=== PATIENT | female | born 1990 | race Caucasian/White ===

== ENCOUNTER 2023-02-20 19:16 | Emergency (ER) | payer BC, SELFPAY ==
--- NOTE | 2023-02-20 19:21 | ED.GENADULT ---
HPI - General Adult General Chief complaint: Unspecified Stated complaint: swollen lumph under left arm Time Seen by Provider: 02/20/23 19:38 Mode of arrival: ambulatory Limitations: no limitations History of Present Illness HPI narrative: 32-year-old female presents with concern for tender bumps in her left axilla. Reports she noticed them about 2 days ago. She denies any other areas of concern. She denies any redness, drainage. She denies fever, aches, chills, sweats. She denies general malaise, fever. Denies cold symptoms. complaint: Swollen lymph node Related Data Home Medications Medication Instructions Recorded Confirmed dextroamphetamine-amphetamine ER 20 mg PO DAILY 02/20/23 02/20/23 20 mg 24hr capsule,extend release Allergies Allergy/AdvReac Type Severity Reaction Status Date / Time No Known Allergies Allergy Verified 02/20/23 19:32 Review of Systems Review of Systems: CONSTITUTIONAL: Denies malaise, chills, sweats, or fever. ENT: Denies rhinorrhea, congestion, sinus pain, otalgia or sore throat. GASTROINTESTINAL: Denies nausea, vomiting, diarrhea, SKIN: Reports tender bumps in the left axilla MUSCULOSKELETAL: Denies myalgia. NEUROLOGIC: Denies numbness, weakness, or headache. All systems reviewed & are unremarkable except as noted in HPI and below PMFSH Comments At time of signature, agree with nursing past medical, surgical, social and family history. There is no relevant family history pertinent to the presenting complaint Exam Narrative: GENERAL: Well-appearing, well-nourished, and in no acute distress. HEAD: Normocephalic, atraumatic. EYES: PERRLA, sclera clear, and EOMI. No nystagmus. ENT: Nares clear, turbinates pink, no rhinorrhea or epistaxis. Mucous membranes moist. TM pearly gilmore with sharp light reflex bilaterally; no tragal tenderness. Oropharynx without erythema or lesions. Tonsils not enlarged and without exudate. NECK: Supple. No cervical lymphadenopathy. CHEST: No respiratory distress. Speaks in full sentences. HEART: Regular rate and rhythm. No murmur heard. EXTREMITIES: Normal range of motion. No edema. Normal strength and sensation. Left axillary lymphadenopathy, 3 palpable small lymph nodes, mobile and slightly tender SKIN: Warm, dry, no visible rash. NEURO: Alert and oriented x3. PSYCH: Normal mood and affect Course Course Emergency Course: Patient was advised to seek further evaluation with her primary care provider. Antibiotic prescribed because I cannot rule out folliculitis at this early stage, patient was advised that if her symptoms become worse with increased redness, tenderness, drainage she should start antibiotic. Patient is aware of, understands and agrees to treatment plan. Anticipatory guidance given. Patient agrees to follow-up as directed and is aware of reasons to seek care at the emergency department. Portions of this record may have been created with voice recognition software Level of Care: Express Care Visit Vital Signs Vital signs: Reviewed. Medical Decision Making MDM Narrative Medical decision making narrative: Exam findings show no acute concerns or changes; patient is non-toxic appearing and is in no distress. Patient is appropriate for outpatient treatment and follow-up. Differential Diagnosis Differential Diagnosis: Lymphadenopathy, folliculitis, cellulitis, abscess, cysts, other pathology Critical Care Time Critical Care Time Critical Care Time: No Discharge Plan Discharge Clinical Impression: Lymphadenopathy Patient Disposition: Home, Self-Care Condition: Stable Instructions: Lymphadenopathy (ED) Additional Instructions: 1) Please follow-up with your primary care doctor in the next 2-3 days for further evaluation. 2) If you have any urgent concerns please go to the ER. 3) Please take medications as prescribed and continue taking your home medications as usual. You can use ibuprofen as needed for ling
[2023-02-20 19:25] VITALS: BP 126/80; PULSE 68; RESP 16; TEMP 36.9; O2SAT 100
== END 2023-02-20 19:56 | disposition home or self-care (01) ==
PROVIDERS: Emergency Provider Nurse Practitioner
DX: R59.1 Generalized enlarged lymph nodes (principal)
CPT/HCPCS: 99213; G0463